=== PATIENT | male | born 1955 | race Caucasian/White ===

== ENCOUNTER 2017-05-27 22:31 | Emergency (ER) | payer MEDICARE ==
[~2017-05-27] VITALS: Ht 188 cm; Wt 102.1 kg
[~2017-05-27 22:31] MED LIST: ASPIRIN81 MG PO; BACTROBAN2% TP; HYDROCHLOROTHIA25 M1 PO; INSULIN AS100 UNITS/ SC; INSULIN GL100 UNITS1 SC; KEFLEX500 M1 PO; LOSARTAN POTASS50 MG PO; METFORMIN ER500 MG PO; SIMVASTATIN40 MG PO
[2017-05-27] MEDS ORDERED: KEFLEX 500MG.500 MG PO (23:06)
--- NOTE | 2017-05-27 23:12 | Emergency Room Report ---
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 N Clinical Suspician of Infection? N Mental Status: 1 - Regular (Normal Baseline) Sepsis Risk:Low Sepsis Risk Have you (or family members/close friends) recently traveled outside the [place]? N If Yes, where/when: Have you had exposure to infectious disease within the past month? N TB? Other? Specify: Source patient, RN notes reviewed, family, old records Exam Limitations no limitations Comment pt with swelling lt elbow with reddness with no trauma or fever today Cardiac Chest Pain Chest pain indicative of cardiac No Timing/Duration this evening Severity moderate ALLERGIES Coded Allergies: Tetanus Vaccines and Toxoid (TETANUS VACCINES & TOXOID) (05/25/16) lisinopril (05/25/16) Home Medications Active Scripts Cephalexin (Keflex 500MG) 500 MG PO QID #40 CAP Prov: 05/25/16 MUPIROCIN 2% (Bactroban Oint) 1 GM TP DAILY #1 TUBE Prov: 05/25/16 Reported Medications HYDROCHLOROTHIAZIDE (Hydrochlorothiazide) 25 MG PO DAILY #30 Losartan Potassium (Losartan 50MG) 50 MG PO DAILY #30 Simvastatin (Simvastatin 40MG Tab) 40 MG PO DAILY #30 Insulin Glargine, Recombinan (Insulin Glargine 3ML) 40 UNITS SC QHS #15 Insulin Aspart (Novolog) (Insulin Aspart Flexpen 3ML) 0 UNITS SC AC #15 METFORMIN HCL (Metformin HCl ER) 1,000 MG PO DAILY #60 Aspirin 81 MG PO DAILY History Medical History General CAD? No Angina: No [place]: No Hypertension? Yes Hyperlipidemia? Yes CHF? No DVT? No PE? No COPD? No Asthma? Yes Anemia? No GERD? No Gastric ulcers? No GI Bleed? No Hernia? No Thyroid Problems? No Hypothyroidism? No CVA? No Seizures? No Diabetes? Yes Insulin Dependent: Yes Insulin Pump: No Home FSBS? Yes Renal Insuffiency? No End Stage Renal Disease? No UTI? No Stones? No BPH? Yes GB Disease: No Nephritic Syndrome? No Asplenia? No Hepatitis? No Sickle Cell Disease? No Arthritis? No Migraines? No Cataracts? No Glaucoma? No MRSA? No HIV? No TB? No Anxiety? No Depression? No Cancer? No Immunization Hx DT/Tetanus > 10 YRS Flu 2YRSorMore Pneumonia NEVER Surgical Hx Previous Surgery?Y Gallbladd HERNIA X3 BROKEN LT LEG Tonsils SMALL INTESTINE RESECTION Family History Family Hx Diabetes Yes CAD Yes Hypertension Yes Hyperlipidemia Yes Cancer No TB No Social History Smoking Hx Smoker: Never Smoker Tobacco: No Alcohol Alcohol: No Drugs none Review of Systems All Other Systems Reviewed and Negative Constitutional denies fever Eyes denies drainage ENT denies: ear discharge, epistaxis, throat pain. Respiratory denies cough, denies shortness of breath Cardiovascular denies chest pain, denies syncope Gastrointestinal denies abdominal pain, denies diarrhea, denies vomiting Genitourinary denies: dysuria, frequency, hesitancy, hematuria. Musculoskeletal see HPI, joint pain, denies joint swelling Skin see HPI, denies rash, other Psychiatric/Neurological denies headache, denies seizure Physical Exam Vital Signs Vital Signs Date Time Temp Pulse Resp B/P Pulse O2 O2 Flow FiO2 Ox Delivery Rate 05/27 2238 98.0 76 14 151/96 98 - WBC >12,000 or <4,000 or 10% bands? 2 or more SIRS Criteria Met? B/P:151/96 MAP:114 Creatinine >2.0? UA output<0.5ml/kg/hr for 2 hrs? Platelet count >100,000? Lactate >2.0mmol/1? INR >1.2 or PTT > than 60 sec? Evidence of Organ Dysfunction? Provider documented clinical suspician of infection? N Sepsis Criteria Count: 0 Sepsis Risk: Low Sepsis Risk General Appearance no apparent distress Eye Exam - bilateral eye PERRL, bilateral eye EOMI Ear, Nose, Throat normal ENT inspection Neck supple Respiratory Status No: respiratory distress. 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 No Results/Orders Current Medication Orders Sig/Allie Start time Last Medication Dose Route Stop Time Status Admin Lidocaine HCl 20 ML ONCE ONE 05/27 2300 DC IJ 05/27 2301 Lidocaine HCl 20 ML ONCE ONE 05/27 2300 DC 05/27 SC 05/27 Lidocaine HCl 0 .STK-MED ONE 05/27 2241 DC .ROUTE Departure Departure Time of Disposition 2302 Disposition DC Home or Self Care(routine) Clinical Impression Primary Impression: Olecranon bursitis of left elbow Condition STABLE Referrals FRIEDA WAY (Family) Patient Instructions DI for Elbow Bursitis Additional Instructions warm soaks and see pcp for follow up Discharge Counseling Counseled pt/family regarding diagnosis, test results, medications/RX, follow up needs Prescriptions Current Visit Scripts CEPHALEXIN (Keflex 500MG Capsule) 500 MG PO Q8H #30 CAP ED Critical Care Critical Care No at 2311
--- NOTE | 2017-05-27 23:12 | Emergency Room Report ---
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 N Clinical Suspician of Infection? N Mental Status: 1 - Regular (Normal Baseline) Sepsis Risk:Low Sepsis Risk Have you (or family members/close friends) recently traveled outside the [place]? N If Yes, where/when: Have you had exposure to infectious disease within the past month? N TB? Other? Specify: Source patient, RN notes reviewed, family, old records Exam Limitations no limitations Comment pt with swelling lt elbow with reddness with no trauma or fever today Cardiac Chest Pain Chest pain indicative of cardiac No Timing/Duration this evening Severity moderate ALLERGIES Coded Allergies: Tetanus Vaccines and Toxoid (TETANUS VACCINES & TOXOID) (05/25/16) lisinopril (05/25/16) Home Medications Active Scripts Cephalexin (Keflex 500MG) 500 MG PO QID #40 CAP Prov: 05/25/16 MUPIROCIN 2% (Bactroban Oint) 1 GM TP DAILY #1 TUBE Prov: 05/25/16 Reported Medications HYDROCHLOROTHIAZIDE (Hydrochlorothiazide) 25 MG PO DAILY #30 Losartan Potassium (Losartan 50MG) 50 MG PO DAILY #30 Simvastatin (Simvastatin 40MG Tab) 40 MG PO DAILY #30 Insulin Glargine, Recombinan (Insulin Glargine 3ML) 40 UNITS SC QHS #15 Insulin Aspart (Novolog) (Insulin Aspart Flexpen 3ML) 0 UNITS SC AC #15 METFORMIN HCL (Metformin HCl ER) 1,000 MG PO DAILY #60 Aspirin 81 MG PO DAILY History Medical History General CAD? No Angina: No [place]: No Hypertension? Yes Hyperlipidemia? Yes CHF? No DVT? No PE? No COPD? No Asthma? Yes Anemia? No GERD? No Gastric ulcers? No GI Bleed? No Hernia? No Thyroid Problems? No Hypothyroidism? No CVA? No Seizures? No Diabetes? Yes Insulin Dependent: Yes Insulin Pump: No Home FSBS? Yes Renal Insuffiency? No End Stage Renal Disease? No UTI? No Stones? No BPH? Yes GB Disease: No Nephritic Syndrome? No Asplenia? No Hepatitis? No Sickle Cell Disease? No Arthritis? No Migraines? No Cataracts? No Glaucoma? No MRSA? No HIV? No TB? No Anxiety? No Depression? No Cancer? No Immunization Hx DT/Tetanus > 10 YRS Flu 2YRSorMore Pneumonia NEVER Surgical Hx Previous Surgery?Y Gallbladd HERNIA X3 BROKEN LT LEG Tonsils SMALL INTESTINE RESECTION Family History Family Hx Diabetes Yes CAD Yes Hypertension Yes Hyperlipidemia Yes Cancer No TB No Social History Smoking Hx Smoker: Never Smoker Tobacco: No Alcohol Alcohol: No Drugs none Review of Systems All Other Systems Reviewed and Negative Constitutional denies fever Eyes denies drainage ENT denies: ear discharge, epistaxis, throat pain. Respiratory denies cough, denies shortness of breath Cardiovascular denies chest pain, denies syncope Gastrointestinal denies abdominal pain, denies diarrhea, denies vomiting Genitourinary denies: dysuria, frequency, hesitancy, hematuria. Musculoskeletal see HPI, joint pain, denies joint swelling Skin see HPI, denies rash, other Psychiatric/Neurological denies headache, denies seizure Physical Exam Vital Signs Vital Signs Date Time Temp Pulse Resp B/P Pulse O2 O2 Flow FiO2 Ox Delivery Rate 05/27 2238 98.0 76 14 151/96 98 - WBC >12,000 or <4,000 or 10% bands? 2 or more SIRS Criteria Met? B/P:151/96 MAP:114 Creatinine >2.0? UA output<0.5ml/kg/hr for 2 hrs? Platelet count >100,000? Lactate >2.0mmol/1? INR >1.2 or PTT > than 60 sec? Evidence of Organ Dysfunction? Provider documented clinical suspician of infection? N Sepsis Criteria Count: 0 Sepsis Risk: Low Sepsis Risk General Appearance no apparent distress Eye Exam - bilateral eye PERRL, bilateral eye EOMI Ear, Nose, Throat normal ENT inspection Neck supple Respiratory Status No: respiratory distress. 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 No Results/Orders Current Medication Orders Sig/Allie Start time Last Medication Dose Route Stop Time Status Admin Lidocaine HCl 20 ML ONCE ONE 05/27 2300 DC IJ 05/27 2301 Lidocaine HCl 20 ML ONCE ONE 05/27 2300 DC 05/27 SC 05/27 Lidocaine HCl 0 .STK-MED ONE 05/27 2241 DC .ROUTE Departure Departure Time of Disposition 2302 Disposition DC Home or Self Care(routine) Clinical Impression Primary Impression: Olecranon bursitis of left elbow Condition STABLE Referrals FRIEDA WAY (Family) Patient Instructions DI for Elbow Bursitis Additional Instructions warm soaks and see pcp for follow up Discharge Counseling Counseled pt/family regarding diagnosis, test results, medications/RX, follow up needs Prescriptions Current Visit Scripts CEPHALEXIN (Keflex 500MG Capsule) 500 MG PO Q8H #30 CAP ED Critical Care Critical Care No at 2311
[2017-05-27 23:26] VITALS: BP 151/96
== END 2017-05-27 23:27 | disposition home or self-care (01) ==
LOC: ER 22:31
DX: M70.22 Olecranon bursitis, left elbow (principal); Z88.7 Allergy status to serum and vaccine; E11.9 Type 2 diabetes mellitus without complications; Z79.4 Long term (current) use of insulin; I10 Essential (primary) hypertension; J45.909 Unspecified asthma, uncomplicated; E78.5 Hyperlipidemia, unspecified